=== PATIENT | female | born 1950 | race Caucasian/White ===

== ENCOUNTER 2016-09-14 07:28 | Emergency (ER) | payer MEDICARE ==
[2016-09-14 07:41] VITALS: BP 105/81
[2016-09-14] MEDS ORDERED: Albuterol 2.5 MG/3 ML NEB.SOL* (0.083%) INH ONE (08:04)
[2016-09-14] MEDS ORDERED: predniSONE TAB* 20 MG PO ONE (08:05)
--- NOTE | 2016-09-14 08:41 | RAD ---
HISTORY: Shortness of breath, wheezing, coughing COMPARISONS: December 04, 2015 VIEWS: 2: Frontal dual-energy and lateral views of the chest. FINDINGS: CARDIOMEDIASTINAL SILHOUETTE: The cardiomediastinal silhouette is normal. KATARINA: The katarina are normal. PLEURA: The costophrenic angles are sharp. No pleural abnormalities are noted. LUNG PARENCHYMA: The lungs are clear. ABDOMEN: The upper abdomen is clear. There is no subphrenic gas. BONES AND SOFT TISSUES: No bone or soft tissue abnormalities are noted. OTHER: None. IMPRESSION: NO ACTIVE CARDIOPULMONARY DISEASE.
[2016-09-14] MEDS ORDERED: Ondansetron ODT TAB* 4 MG PO ONE (09:20)
--- NOTE | 2016-09-14 10:47 | UC ---
Princess Hernández Rebecca, scribed for Tiesha Aparicio MD on 09/14/16 at 0806 . Respiratory Complaint HPI - HPI Summary HPI Summary: Pt is a 66 y/o F accompanied by her who presents to [facility] c/o nonproductive cough. Sx began suddenly 4 days ago and have been constant and worsening since onset, particularly 2 days ago. Pt was prompted to be evaluated by [facility] due to cough disturbing sleep last night and a particularly severe bout of coughing this morning. Sx aggravated and alleviated by nothing. Additionally c/o intermittent fever, chills, diffuse body aches. C/o mild rhinorrhea and sore throat. Pt denies any pain. Reports living with her 12 y/o grandson who is suffering similar sx. Confirms receiving PNA shot. PMHx bronchitis, HTN, cardiomegaly, DM, PNA (15 years ago). No PMHx PE, DVT. SHx no Hx of smoking. FHx DM. Pt is retired. Received a flu vaccination in March,. PCP is Dr. Blanco. - History of Current Complaint Chief Complaint: UCRespiratory Stated Complaint: CHEST CONGESTION COUGH Time Seen by Provider: 09/14/16 07:59 Hx Obtained From: Patient Onset/Duration: Sudden Onset, Lasting Days - 4 days, Still Present, Worse Since - 2 days ago Timing: Constant Severity Currently: None Pain Intensity: 0 Pain Scale Used: 0-10 Numeric Character: Cough: Nonproductive Aggravating Factors: Nothing Alleviating Factors: Nothing Associated Signs And Symptoms: Positive: Fever, Chills - Risk Factors Pulmonary Embolism Risk Factors: Negative Cardiac Risk Factors: Diabetes Pseudomonas Risk Factors: Negative Tuberculosis Risk Factors: Diabetes - Allergies/Home Medications Allergies/Adverse Reactions: Allergies Allergy/AdvReac Type Severity Reaction Status Date / Time No Known Allergies Allergy Verified 09/14/16 07:41 Home Medications: Home Medications glipiZIDE TAB.XL* [Glucotrol XL*] 5 mg PO DAILY 09/14/16 [History Confirmed ] PMH/Surg Hx/FS Hx/Imm Hx Endocrine History Of: Reports: Diabetes Cardiovascular History Of: Reports: Cardiac Disorders - "slightly enlarged heart ", Hypertension Denies: Deep Vein Thrombosis Respiratory History Of: Reports: Asthma, Bronchitis, Pneumonia Denies: Pulmonary Embolism Cancer History Of: Denies: Breast Cancer - Surgical History Surgical History: Yes Surgery Procedure, Year, and Place: Colon resection 2013. thoracic outlet. hysterectomy. Choley. Hernia repair. L total hip replacement. liver bx - Family History Known Family History: Positive: Diabetes - Social History Occupation: Retired Lives: With Family - and grandson Alcohol Use: None Substance Use Type: None Smoking Status (MU): Never Smoked Tobacco Review of Systems Constitutional: Fever, Chills, Other - Diffuse body aches ENT: Sore Throat, Nasal Discharge Respiratory: Cough - nonproductive All Other Systems Reviewed And Are Negative: Yes Physical Exam Triage Information Reviewed: Yes Appearance: No Pain Distress, Well-Nourished, Ill-Appearing - mildly Vital Signs: Initial Vital Signs Temp 98.4 F 09/14/16 07:36 Pulse 110 09/14/16 07:36 Resp 20 09/14/16 07:36 BP 105/81 09/14/16 07:36 Pulse Ox 95 09/14/16 07:36 tachycardia noted Vital Signs Reviewed: Yes Eyes: Positive: Conjunctiva Clear ENT: Positive: Pharynx normal, TMs normal Neck: Positive: Supple, Nontender, No Lymphadenopathy Respiratory: Positive: No respiratory distress, Decreased breath sounds Cardiovascular: Positive: No Murmur, Pulses Normal, Brisk Capillary Refill, Tachycardia Musculoskeletal: Positive: Strength Intact, ROM Intact Neurological: Positive: Alert, Muscle Tone Normal Psychological Exam: Normal Skin Exam: Normal UC Diagnostic Evaluation - Laboratory O2 Sat by Pulse Oximetry: 95 - Radiology Xray Interpretation: No Acute Changes - CXR - no active cardiopulmonary disease Radiology Interpretation Completed By: Radiologist Re-Evaluation - Re-Evaluation First Eval Re-Evaluation Time: 09:14 Change: Unchanged Comment: Increased aeration. Pt reports improved sx s/p breathing treatment. Discussed D/C plan with pt and treatment of influenza with Tamiflu. Consulted on the use of Zofran tup to QID to treat nausea secondary to influenza. Advised that she watch her blood glucose particularly closely and increase her sleep. Pt requested medication to aid with sleep. Counseled on proper narcotic use and disposal. Answered any pt questions. Respiratory Course/Dx - Course Course Of Treatment: Influenza A - positive, Influenza B negative. CXR reveals no active cardiopulmonary disease. will offer tamiflu because pt is DM and because sxs worsened two days ago, could have been onset of influenza. - Differential Dx/Diagnosis Differential Diagnosis/HQI/PQRI: Asthma, Bronchitis, Influenza, Lower Resp Infection Provider Diagnoses: influenza A. bronchitis, acute. DM II Discharge - Discharge Plan Condition: Stable Disposition: HOME Prescriptions: Ondansetron ODT TAB* [Zofran Odt TAB*] 4 mg PO Q6H PRN #12 tab.odt PRN Reason: Nausea Oseltamivir CAP* [Tamiflu CAP*] 75 mg PO BID #10 cap guaiFENesin/CODIEN 100MG-10MG* [Robitussin AC 100Mg-10Mg*] 5 ml PO Q4H PRN #50 ml MDD 20ml PRN Reason: Cough predniSONE TAB* [Deltasone TAB*] 40 mg PO DAILY #10 tab Patient Education Materials: Ondansetron (By mouth), Oseltamivir (By mouth), Influenza (ED) Referrals: Charles Blanco MD [Primary Care Provider] - Additional Instructions: RETURN TO URGENT CARE FOR ANY NEW OR WORSENING SYMPTOMS. The documentation as recorded by the Princess melgar Rebecca accurately reflects the service I personally performed and the decisions made by Markus kumari Barbara J, MD.
== END 2016-09-14 09:34 | disposition home or self-care (01) ==
LOC: UCEAST 07:28
DX: J10.1 Influenza due to other identified influenza virus with other respiratory manifestations (principal); J20.9 Acute bronchitis, unspecified; E11.9 Type 2 diabetes mellitus without complications; Z79.84 Long term (current) use of oral hypoglycemic drugs; Z96.642 Presence of left artificial hip joint
CPT/HCPCS: 71020; 87502; 99213; A9270-GY; G0463; J7512

== ENCOUNTER 2017-08-15 09:57 | Emergency (ER) | payer MEDICARE ==
[2017-08-15 10:11] VITALS: BP 143/71
--- NOTE | 2017-08-15 11:35 | RAD ---
HISTORY: Subacute trauma, right-sided pain COMPARISONS: September 14, 2016 VIEWS: 4: Frontal dual-energy and lateral views of the chest. FINDINGS: CARDIOMEDIASTINAL SILHOUETTE: The cardiomediastinal silhouette is normal. KATARINA: The katarina are normal. PLEURA: The costophrenic angles are sharp. No pleural abnormalities are noted. LUNG PARENCHYMA: The lungs are clear. ABDOMEN: The upper abdomen is clear. There is no subphrenic gas. BONES AND SOFT TISSUES: No bone or soft tissue abnormalities are noted. OTHER: None. IMPRESSION: NO ACTIVE CARDIOPULMONARY DISEASE.
--- NOTE | 2017-08-15 11:37 | RAD ---
HISTORY: Subacute trauma, right-sided pain COMPARISONS: July 28, 2015 VIEWS: 4, Frontal view of the chest with frontal and oblique views of the right hemithorax. FINDINGS: There is no displaced rib fracture or pneumothorax. The visualized lungs are clear. IMPRESSION: NO DISPLACED RIB FRACTURE OR PNEUMOTHORAX
--- NOTE | 2017-08-15 11:38 | RAD ---
HISTORY: Subacute trauma, right-sided pain COMPARISONS: August 12, 2009 VIEWS: 3, Frontal, swimmer's, and lateral views of the thoracic spine. FINDINGS: ALIGNMENT: There is a trace scoliotic curvature, stable VERTEBRAL BODIES: The vertebral body heights are normal. The interpedicular distances are normal. JOINTS: Unremarkable. INTERVERTEBRAL DISCS: The intervertebral disc heights are normal. SOFT TISSUE: Unremarkable OTHER: The visualized lungs are clear. IMPRESSION: UNREMARKABLE RADIOGRAPHS OF THE THORACIC SPINE
--- NOTE | 2017-08-21 23:55 | UC ---
Eric Hernández Angela, scribed for Monique Rivera MD on 08/15/17 at 1052 . Back Pain HPI - HPI Summary HPI Summary: This pt is a 67 y/o female presenting to [facility] c/o right sided back pain s/p fall 3 days ago. Pt describes her pain originates on the right side of the lower rib cage. She reports she slipped on ice 3 days ago, fell down and subsequently landed on her right side of her back. Pt notes her back was sore afterwards. Last night, as she was going to bed laying on her left side, she rolled over her bed, twisted her back and heard a pop. Immediately after, she was in excruciating pain. Her pain is aggravated with deep breaths and movement. She has taken ibuprofen with some relief. Denies abd pain, hematuria, urinary or bowel incontinence. PMHx: type 2 diabetes, HTN. NKDA. - History of Current Complaint Chief Complaint: UCBackPain Stated Complaint: BACK INJURY FROM FALL Time Seen by Provider: 08/15/17 10:40 Hx Obtained From: Patient Onset/Duration: Lasting Days, Still Present Timing: Lasting Days Severity Currently: Moderate Pain Intensity: 5 Pain Scale Used: 0-10 Numeric Back Pain: Is Discrete @ - right sided back Aggravating Factor(s): Movement, Other - deep breaths Alleviating Factor(s): Nothing Associated Signs And Symptoms: Negative: Abdominal Pain, Bladder Incontinence, Bowel Incontinence - Allergies/Home Medications Allergies/Adverse Reactions: Allergies Allergy/AdvReac Type Severity Reaction Status Date / Time No Known Allergies Allergy Verified 08/15/17 10:07 PMH/Surg Hx/FS Hx/Imm Hx Endocrine History: Diabetes Cardiovascular History: Hypertension Respiratory History: Asthma - Surgical History Surgical History: Yes Surgery Procedure, Year, and Place: Colon resection 2013. thoracic outlet. hysterectomy. Choley. Hernia repair. L total hip replacement. liver bx - Family History Known Family History: Positive: Diabetes - Social History Alcohol Use: None Substance Use Type: None Smoking Status (MU): Never Smoked Tobacco Review of Systems Constitutional: Negative Skin: Negative Eyes: Negative ENT: Negative Respiratory: Negative Cardiovascular: Negative Gastrointestinal: Negative Genitourinary: Negative Motor: Negative Neurovascular: Negative Musculoskeletal: Other: - right sided back pain Neurological: Negative Psychological: Negative All Other Systems Reviewed And Are Negative: Yes Physical Exam Triage Information Reviewed: Yes Appearance: Well-Nourished Vital Signs: Initial Vital Signs Temp 98 F 08/15/17 10:08 Pulse 73 08/15/17 10:08 Resp 16 08/15/17 10:08 BP 143/71 08/15/17 10:08 Pulse Ox 100 08/15/17 10:08 Vital Signs Reviewed: Yes Eye Exam: Normal ENT Exam: Normal Neck exam: Normal Neck: Positive: Supple, Nontender Respiratory Exam: Other - tender left lat chest wall, no billie skin discoloration, no crepitus. Respiratory: Positive: Chest non-tender, Lungs clear, Normal breath sounds, No respiratory distress, No accessory muscle use Cardiovascular Exam: Normal Cardiovascular: Positive: Other: - heart rate regular, good general skin color, good capillary refill Abdominal Exam: Normal Abdomen Description: Positive: Nontender, No Organomegaly, Soft Bowel Sounds: Positive: Present Musculoskeletal: Positive: Other: - Tenderness to the right of the upper thoracic spine and the low back Neurological Exam: Normal - nonfocal, grossly intact Psychological Exam: Normal - conversing easily and appropriately Skin Exam: Normal - no visible or reported rash Diagnostics - Radiology Chest XR Xray Interpretation: No Acute Changes - IMPRESSION: No active cardiopulmonary disease. Dr. Rivera has reviewed this radiology report. Radiology Interpretation Completed By: Radiologist Ribs XR Xray Interpretation: No Acute Changes - IMPRESSION: No displaced rib fracture or pneumothorax. Dr. Rivera has reviewed this radiology report. Radiology Interpretation Completed By: Radiologist Thoracic spine XR Xray Interpretation: No Acute Changes - IMPRESSION: Unremarkable radiographis of the thoracic spine. Dr. Rivera has reviewed this radiology report. Radiology Interpretation Completed By: Radiologist Re-Evaluation - Re-Evaluation First Eval Re-Evaluation Time: 11:42 Comment: I reviewed the XR results with the pt. Back Pain Course/Dx - Course Course Of Treatment: Declines analgesics. Chest XR is NAD. Ribs XR is NAD. Thoracic spine XR is NAD. D/w Mr. Wahl COA and Tx plan. Questions as posed answered to the best of my ability. - Differential Dx/Diagnosis Provider Diagnoses: Chest wall pain, rib contusion (consider chest wall strain vs occult fx) Discharge - Discharge Plan Condition: Stable Disposition: HOME Prescriptions: Ibuprofen TAB* [Motrin TAB* 600 MG] 600 mg PO Q6H PRN #30 tab PRN Reason: Pain Patient Education Materials: Chest Wall Pain (ED), Rib Contusion (ED) Referrals: Charles Blanco MD [Primary Care Provider] - Additional Instructions: Your blood pressure was elevated during today's visit, 143/71. Please follow up with your primary care provider in 1-2 weeks. Seek medical attention for worse or new problems in the meantime. The documentation as recorded by the Eric melgar Angela accurately reflects the service I personally performed and the decisions made by me, Monique Rivera MD.
== END 2017-08-15 11:58 | disposition home or self-care (01) ==
LOC: UCEAST 09:57
DX: R07.89 Other chest pain (principal); S20.20XA Contusion of thorax, unspecified, initial encounter; W00.0XXA Fall on same level due to ice and snow, initial encounter; Y93.9 Activity, unspecified; Y92.9 Unspecified place or not applicable; E11.9 Type 2 diabetes mellitus without complications; I10 Essential (primary) hypertension; J45.909 Unspecified asthma, uncomplicated; Z90.710 Acquired absence of both cervix and uterus; Z90.49 Acquired absence of other specified parts of digestive tract; Z96.642 Presence of left artificial hip joint
CPT/HCPCS: 71046; 72070; 99212; G0463

== ENCOUNTER 2018-01-31 10:25 | Emergency (ER) | payer MEDICARE ==
[2018-01-31 10:35] VITALS: BP 123/68
--- NOTE | 2018-01-31 10:37 | UC ---
Ear Complaint HPI - HPI Summary HPI Summary: 67 yo female presents with left ear pain for the last 2 days. She tells me that she was swimming 3 days ago and the next morning woke up with left ear pain and drainage. Since then drainage has slowed, but she feels the pain has increased. Also has some trouble hearing out of that ear. She flushed it at home and said she got a lot of "gunk" out. Denies fever, chills, headache, dizziness. - History of Current Complaint Chief Complaint: UCEar Stated Complaint: EAR PAIN Time Seen by Provider: 01/31/18 10:37 Hx Obtained From: Patient Onset/Duration: Gradual Onset Severity Initially: Mild Severity Currently: Moderate Pain Intensity: 6 Pain Scale Used: 0-10 Numeric - Allergies/Home Medications Allergies/Adverse Reactions: Allergies Allergy/AdvReac Type Severity Reaction Status Date / Time amoxicillin Allergy Diarrhea Verified 01/31/18 10:35 PMH/Surg Hx/FS Hx/Imm Hx Previously Healthy: Yes Endocrine History: Diabetes Cardiovascular History: Hypertension - Surgical History Surgical History: Yes Surgery Procedure, Year, and Place: Colon resection 2013. thoracic outlet. hysterectomy. Choley. Hernia repair. L total hip replacement. liver bx - Family History Known Family History: Positive: Diabetes - Social History Lives: With Family Alcohol Use: None Substance Use Type: None Smoking Status (MU): Never Smoked Tobacco Review of Systems Constitutional: Negative Skin: Negative Eyes: Negative ENT: Ear Ache Respiratory: Negative Cardiovascular: Negative Gastrointestinal: Negative Neurovascular: Negative Musculoskeletal: Negative Neurological: Negative Psychological: Negative All Other Systems Reviewed And Are Negative: Yes Physical Exam - Summary Physical Exam Summary: GENERAL: NAD. WDWN. No pain distress. SKIN: No rashes, sores, lesions, or open wounds. HEENT: Head: AT/NC Eyes: EOM intact. Conjunctiva clear without inflammation or discharge. Ears: Hearing grossly normal. LEFT ear canal with moderate edema and mild clear drainage. TM intact without erythema or bulging. Nose: Nasal mucosa pink and moist. NTTP maxillary and frontal sinus. Throat: Posterior oropharynx without exudates, erythema, or tonsillar enlargement. Uvula midline. NECK: Supple. Nontender. No lymphadenopathy. CHEST: CTAB. No r/r/w. No accessory muscle use. Breathing comfortably and in no distress. CV: RRR. Without m/r/g. Pulses intact. Brisk cap refill. NEURO: Alert. CN II-XII grossly intact. PSYCH: Age appropriate behavior. Triage Information Reviewed: Yes Vital Signs: Initial Vital Signs Temp 97.1 F 01/31/18 10:31 Pulse 85 01/31/18 10:31 Resp 18 01/31/18 10:31 BP 123/68 01/31/18 10:31 Pulse Ox 97 01/31/18 10:31 Ear Complaint Course/Dx - Course Course Of Treatment: Left otitis externa - Differential Dx/Diagnosis Provider Diagnoses: Left otitis externa Discharge - Sign-Out/Discharge Documenting (check all that apply): Discharge/Admit/Transfer - Discharge Plan Condition: Stable Disposition: HOME Prescriptions: Neomyc/Polym/HC 1% OTIC SUSP* [Cortisporin Otic Susp 1%*] 4 drop LEFT EAR QID # 1 btl Patient Education Materials: Otitis Externa (ED) Referrals: Charles Blanco MD [Primary Care Provider] - Additional Instructions: If you develop a fever, shortness of breath, chest pain, new or worsening symptoms - please call your PCP or go to the ED. - Billing Disposition and Condition Condition: STABLE Disposition: Home
== END 2018-01-31 10:57 | disposition home or self-care (01) ==
LOC: UCEAST 10:25
DX: H60.92 Unspecified otitis externa, left ear (principal); E11.9 Type 2 diabetes mellitus without complications; I10 Essential (primary) hypertension; Z88.0 Allergy status to penicillin; Z96.642 Presence of left artificial hip joint
CPT/HCPCS: 99212; G0463

== ENCOUNTER 2018-07-10 11:02 | Emergency (ER) | payer MEDICARE ==
[2018-07-10] MEDS ORDERED: NS 0.9% 1000 ML* 1,000 ML IV ONE (11:19)
--- NOTE | 2018-07-10 11:48 | ED ---
Abdominal Pain/Female - HPI Summary HPI Summary: Patient is a 67 y/o F presenting to ED with complaints of LLQ and periumbilical pain with some radiation to left flank/back alongside N/V/D for the past twelve days. She notes that pain has recently been located more so at periumbilical area as opposed to LLQ. No black stool reported. PMHx of diverticulitis, cdiff, diabetes. PSHx of hystectomy as well as bowel resection 3-4 years [address] done [address] Dr[address] García in [place]. Patient states that she went to her PCP and was placed on doxycycline. However, she states this caused a lot of N/V, went back to PCP who placed her on cipro and flagyl, which she has been on for three days. She notes that she did not take it this morning due to continued N/V. On triage, pain is rated 7/10, nothing is noted to aggravate/alleviate Sx. Home medications and allergies are reviewed. - History of Current Complaint Chief Complaint: EDAbdPain Stated Complaint: SEVERE ABD PAIN Time Seen by Provider: 07/10/18 11:38 Hx Obtained From: Patient Onset/Duration: Lasting Days - 12, Still Present Timing: Days - 12 Severity Currently: Severe - 7/10 Pain Intensity: 7 Pain Scale Used: 0-10 Numeric - 7/10 Location: Discrete At: LLQ, Umbilical Radiates: Yes Radiates to: Back - left, Flank - left Aggravating Factor(s): Nothing Alleviating Factor(s): Nothing Associated Signs and Symptoms: Positive: Back Pain - left, Nausea, Vomiting, Diarrhea, Other: - no black stool, endorses left flank pain Allergies/Adverse Reactions: Allergies Allergy/AdvReac Type Severity Reaction Status Date / Time amoxicillin Allergy Diarrhea Verified 07/10/18 11:46 Home Medications: Home Medications Aspirin TAB* [Aspirin 325 MG TAB*] 650 mg PO BID 07/10/18 [History Confirmed ] Pravastatin Sodium 40 mg PO DAILY 07/10/18 [History Confirmed 07/10/18] Sertraline HCl [Zoloft] 50 mg PO DAILY 07/10/18 [History Confirmed 07/10/18] PMH/Surg Hx/FS Hx/Imm Hx Endocrine/Hematology History: Reports: Hx Diabetes - niddm Cardiovascular History: Reports: Hx Hypertension Denies: Hx Deep Vein Thrombosis Respiratory History: Reports: Hx Pneumonia Denies: Hx Asthma, Hx Pulmonary Embolism - Cancer History Hx Chemotherapy: No Hx Radiation Therapy: No - Surgical History Surgery Procedure, Year, and Place: Colon resection 2013. thoracic outlet. hysterectomy. Choley. Hernia repair. L total hip replacement. liver bx Infectious Disease History: No Infectious Disease History: Reports: Hx Clostridium Difficile - May 2015, Hx Shingles Denies: Hx Hepatitis, Hx Human Immunodeficiency Virus (HIV), Hx of Known/ Suspected MRSA, Hx Tuberculosis, Hx Known/Suspected VRE, Hx Known/Suspected VRSA , History Other Infectious Disease, Traveled Outside the [place] in Last 30 Days - Family History Known Family History: Positive: Diabetes - Social History Alcohol Use: None Substance Use Type: Reports: None Hx Tobacco Use: No Smoking Status (MU): Never Smoked Tobacco Review of Systems Positive: Abdominal Pain, Vomiting, Diarrhea, Nausea Positive: flank pain - left , other - NEGATIVE - BLACK STOOL Positive: Other - POSITIVE - BACK PAIN All Other Systems Reviewed And Are Negative: Yes Physical Exam - Summary Physical Exam Summary: Appearance: The patient is well-nourished in no acute distress and in no acute pain. Skin: The skin is warm and dry and skin color reflects adequate perfusion. HEENT: The head is normocephalic and atraumatic. The pupils are equal and reactive. The conjunctivae are clear and without drainage. Nares are patent and without drainage. Mouth reveals moist mucous membranes and the throat is without erythema and exudate. The external ears are intact. The ear canals are patent and without drainage. The tympanic membranes are intact. Neck: The neck is supple with full range of motion and non-tender. There are no carotid bruits. There is no neck vein distension. Respiratory: Chest is non-tender. Lungs are clear to auscultation and breath sounds are symmetrical and equal. Cardiovascular: Heart is regular rate and rhythm. There is no murmur or rub auscultated. There is no peripheral edema and pulses are symmetrical and equal. Abdomen: The abdomen is soft. LUQ and epigastric tenderness noted. There are normal bowel sounds heard in all four quadrants and there is no organomegaly palpated. Musculoskeletal: There is no back tenderness noted. Extremities are non-tender with full range of motion. There is good capillary refill. There is no peripheral edema or calf tenderness elicited. Neurological: Patient is alert and oriented to person, place and time. The patient has symmetrical motor strength in all four extremities. Cranial nerves are grossly intact. Deep tendon reflexes are symmetrical and equal in all four extremities. Psychiatric: The patient has an appropriate affect and does not exhibit any anxiety or depression. Triage Information Reviewed: Yes Vital Signs On Initial Exam: Initial Vitals Temp Pulse Resp BP Pulse Ox 97.4 F 80 18 115/82 97 07/10/18 11:05 07/10/18 11:05 07/10/18 11:05 07/10/18 11:05 07/10/18 11:05 Vital Signs Reviewed: Yes Diagnostics - Vital Signs Vital Signs Temp Pulse Resp BP Pulse Ox 07/10/18 11:05 97.4 F 80 18 115/82 97 - Laboratory Result Diagrams: 07/10/18 12:09 07/10/18 13:45 Lab Statement: Any lab studies that have been ordered have been reviewed, and results considered in the medical decision making process. - CT ABD/PEL CT CT Interpretation Completed By: Radiologist Summary of CT Findings: IMPRESSION: 1. FATTY INFILTRATION OF THE LIVER. 2. STABLE OBSTRUCTING LEFT RENAL CALYCEAL STONE. THIS REPORT WAS REVIEWED BY ED PHYSICIAN. - EKG 1137 Cardiac Rate: NL - RATE OF 83 BPM EKG Rhythm: Sinus Rhythm ST Segment: Normal Ectopy: None Summary of EKG Findings: EKG showed normal sinus rhythm with rate of 83 BPM and left anterior fascicular block. Normal ST, no ectopy, no STEMI Re-Evaluation - Re-Evaluation First Eval Re-Evaluation Time: 15:04 Comment: Results of labs and tests were discussed with patient. Patient will be discharged to home and follow up with PCP. She is agreeable with this. Abdominal Pain Fem Course/Dx - Course Course Of Treatment: Ms. Wahl presented with several days of epigastric pain. Initially the pain was more difficult to characterize and as she had a history of diverticulitis she was started on Cipro and Flagyl as an outpatient. She has had some nausea and vomiting. She denies black stools but states they've been darker than normal. She had epigastric tenderness and no the left lower quadrant tenderness. Labs revealed an elevated BUN with an unremarkable H&H. She was given Protonix IV and got significant relief from her epigastric pain. I'm concerned the source of her elevated BUN may be some oozing from a gastritis and I'm going to start her on Prilosec and sucralfate and get close follow-up after the weekend. - Diagnoses Provider Diagnoses: Gastritis Discharge - Sign-Out/Discharge Documenting (check all that apply): Patient Departure - discharge - Discharge Plan Condition: Stable Disposition: HOME Prescriptions: Omeprazole CAP* [Prilosec CAP* 20 MG] 20 mg PO BID #20 cap. Sucralfate TAB* [Carafate*] 1 gm PO QID #40 tab Patient Education Materials: Gastritis (ED) Referrals: Charles Blanco MD [Primary Care Provider] - 3 Days Additional Instructions: RETURN TO ED FOR ANY NEW OR WORSENING SYMPTOMS. FOLLOW UP WITH PRIMARY CARE PHYSICIAN IN 2-3 DAYS. STOP TAKING CIPRO. - Billing Disposition and Condition Condition: STABLE Disposition: Home - Attestation Statements Document Initiated by Christyibe: Yes Documenting Scribe: AMY JOHNSON Provider For Whom Jasmin is Documenting (Include Credential): ALLISON VALENCIA MD Scribe Attestation: AMY Hernández , scribed for ALLISON VALENCIA MD on 07/10/18 at 2021. Scribe Documentation Reviewed: Yes Provider Attestation: The documentation as recorded by the AMY melgar accurately reflects the service I personally performed and the decisions made by me, ALLISON VALENCIA MD Status of Scribe Document: Viewed
[2018-07-10 12:21] LABS: Hematocrit 40 % (35-47); Mean Corpuscular HGB Conc 33 g/dl (31-36); Mean Corpuscular Hemoglobin 30 pg (27-31); Mean Corpuscular Volume 91 fL (80-97); Mean Platelet Volume 9.1 fL (7.4-10.4); Platelet Count 270 10^3/ul (150-450); Red Cell Distribution Width 14 % (10.5-15); White Blood Count 14.1 10^3/ul (3.5-10.8)
[2018-07-10 12:31] LABS: INR 0.99 (0.77-1.02)
[2018-07-10 12:47] LABS: EGFR Non-African American 64.1 (>60)
[2018-07-10 13:21] LABS: ABS Basophils 0.1 10^3/ul (0-0.2); ABS Eosinophils 0.6 10^3/ul (0-0.6); ABS Lymphocytes 6.7 10^3/ul (1.0-4.8); ABS Monocytes 0.5 10^3/ul (0-0.8); ABS Neutrophils 6.1 10^3/ul (1.5-7.7); ABS Nucleated RBC 0 10^3/ul; Eosinophil % 4.3 %; Lymphocyte % 47.8 %; Nucleated Red Blood Cells % 0.2
[2018-07-10] MEDS ORDERED: Pantoprazole IV* 40 MG IV ONE (13:40)
[2018-07-10 14:52] LABS: Urine Appearance Clear; Urine Blood Negative (Negative); Urine Color Yellow; Urine Ketones Negative (Negative); Urine Protein Negative (Negative); Urine Red Blood Cell 1+(3-5/hpf) (Absent); Urine Specific Gravity 1.021 (1.010-1.030); Urine Urobilinogen Negative (Negative); Urine White Blood Cell Trace(0-5/hpf) (Absent)
[2018-07-10 16:33] VITALS: BP 130/70
== END 2018-07-10 16:15 | disposition home or self-care (01) ==
LOC: ED 11:02
DX: K29.70 Gastritis, unspecified, without bleeding (principal); K76.0 Fatty (change of) liver, not elsewhere classified; N20.0 Calculus of kidney; Z96.642 Presence of left artificial hip joint; Z90.49 Acquired absence of other specified parts of digestive tract; Z90.710 Acquired absence of both cervix and uterus; Z88.0 Allergy status to penicillin
CPT/HCPCS: 36415; 74176; 80053; 81003; 81015; 83605; 83690; 84484; 85025; 85610; 86140; 87086; 93005; 96374; 99283

== ENCOUNTER 2019-08-16 08:50 | Emergency (ER) | payer MEDICARE ==
[2019-08-16] MEDS ORDERED: NS 0.9% 1000 ML** 1,000 ML IV ONE ×2 (09:24→10:13)
[2019-08-16] MEDS ORDERED: Ondansetron INJ* 2 MG/ML VIAL IV ONE (09:24)
[2019-08-16] MEDS ORDERED: Morphine 4 MG/ML VIAL (1 ml) 4 MG/ML VIAL IV ONE ×2 (09:24→10:26)
--- NOTE | 2019-08-16 09:25 | ED ---
Abdominal Pain/Female - HPI Summary HPI Summary: Patient is a 69-year-old female who presents emergency department for severe rectal pain times several days. Patient states she had a colonoscopy 10 days ago for chronic diarrhea and was found to have internal and external hemorrhoids. She was referred to surgery and had an appointment with Dr. Collier, general surgery, today. Patient states the pain increased in the last few days and she presents to the ER for evaluation. Patient states pain radiates from rectum to outer buttocks. She notes chills without documented fever as well as nausea. Past medical history of obesity, diabetes, hypertension, GERD. Symptoms are moderate in severity. No current modifying factors. Patient notes she's been using rectal suppositories as well as applying topical steroids with no improvement. - History of Current Complaint Chief Complaint: EDRectalPain Stated Complaint: HEMORRHOIDS PER PT Time Seen by Provider: 08/16/19 09:07 Hx Obtained From: Patient Pain Intensity: 10 Allergies/Adverse Reactions: Allergies Allergy/AdvReac Type Severity Reaction Status Date / Time amoxicillin Allergy Diarrhea Verified 08/16/19 09:01 Home Medications: Home Medications Cyanocobalamin TAB* [Vitamin B12 TAB*] 2,500 mcg PO DAILY 08/16/19 [History Confirmed 08/16/19] Hydrocortisone Acetate [Anucort-Hc] 25 mg NE Q12H 08/16/19 [History Confirmed ] Multivitamins/Minerals TAB* [Theragran/minerals TAB*] 1 tab PO DAILY 08/16/19 [ History Confirmed 08/16/19] PMH/Surg Hx/FS Hx/Imm Hx Previously Healthy: Yes Endocrine/Hematology History: Reports: Hx Diabetes - niddm Cardiovascular History: Reports: Hx Hypertension Denies: Hx Deep Vein Thrombosis Respiratory History: Reports: Hx Pneumonia Denies: Hx Asthma, Hx Pulmonary Embolism Musculoskeletal History: Denies: Hx Rheumatoid Arthritis, Hx Osteoporosis - Cancer History Hx Chemotherapy: No Hx Radiation Therapy: No - Surgical History Surgery Procedure, Year, and Place: Colon resection 2013. thoracic outlet. hysterectomy. Choley. Hernia repair. L total hip replacement. liver bx Infectious Disease History: No Infectious Disease History: Reports: Hx Clostridium Difficile - May 2015, Hx Shingles Denies: Hx Hepatitis, Hx Human Immunodeficiency Virus (HIV), Hx of Known/ Suspected MRSA, Hx Tuberculosis, Hx Known/Suspected VRE, Hx Known/Suspected VRSA , History Other Infectious Disease, Traveled Outside the [place] in Last 30 Days - Family History Known Family History: Positive: Diabetes, Non-Contributory - Social History Occupation: Retired Lives: With Family Alcohol Use: None Substance Use Type: Reports: None Hx Tobacco Use: No Smoking Status (MU): Never Smoked Tobacco Review of Systems Positive: Chills. Negative: Fever Cardiovascular: Negative Respiratory: Negative Positive: Nausea, Other - rectal pain. Negative: Abdominal Pain, Vomiting Genitourinary: Negative Skin: Negative Negative: Rash All Other Systems Reviewed And Are Negative: Yes Physical Exam Triage Information Reviewed: Yes Vital Signs On Initial Exam: Initial Vitals Temp Pulse Resp BP Pulse Ox 97.7 F 125 20 128/93 97 08/16/19 08:58 08/16/19 08:58 08/16/19 08:58 08/16/19 08:58 08/16/19 08:58 Vital Signs Reviewed: Yes Appearance: Positive: Pain Distress - Patient lying in bed on her left side appears uncomfortable and nontoxic. present. Skin: Positive: Warm, Dry Head/Face: Positive: Normal Head/Face Inspection Eyes: Positive: Normal, EOMI Neck: Positive: Supple Abdomen Description: Positive: Nontender, Soft, Other: - Rectal exam performed with patient's nurse, Priscilla VALDEZ. Small non-thrombosed external hemorrhoid noted. Patient will not allow digital rectal exam secondary to pain. Diffuse palpable pain around rectum without obvious signs of abscess or fissure. Neurological: Positive: Normal, CN Intact II-III Psychiatric: Positive: Affect/Mood Appropriate Procedures - Sedation Patient Received Moderate/Deep Sedation with Procedure: No Diagnostics - Vital Signs Vital Signs Temp Pulse Resp BP Pulse Ox 08/16/19 08:58 97.7 F 125 20 128/93 97 - Laboratory Result Diagrams: 08/16/19 09:25 08/16/19 09:25 Lab Statement: Any lab studies that have been ordered have been reviewed, and results considered in the medical decision making process. Abdominal Pain Fem Course/Dx - Course Course Of Treatment: Pt. with sever rectal pain. Tachycardic, afebrile. Nontoxic appearing. Limited exam secondary to pt.'s pain. No obvious signs for pt.'s pain on exam. Hx of DM. Will obtain labs and ct scan to evaluate for possible rectal abscess, complication from recent colonscopy. Pt. given IV morphine for pain x 2. WBC 13.1, anion gap 12, glucose 395, lactic acid 2.7. Pt. given 2 liters of IV fluids. CT abd/pelvis per radiology: IMPRESSION: 1. THERE HAS BEEN INTERVAL DEVELOPMENT OF MUCOSAL THICKENING AND ENHANCEMENT OF THE SMALL. BOWEL WITH A SMALL AMOUNT OF INTRALUMINAL FLUID. THERE IS NO DILATATION. THE DIFFERENTIAL. INCLUDES ENTERITIS, THOUGH EARLY OBSTRUCTION IS WITHIN THE DIFFERENTIAL. RECOMMEND. ATTENTION ON FOLLOW-UP IMAGING. 2. FATTY INFILTRATION OF THE LIVER. Case discussed with Dr. Collier who examined pt. in the ED. She does not see an etiology for pt.'s pain at this time. She recommends f.u with colorectal surgeon, which we do not have at [facility] [place]. Pt. prefers f.u with herrick for this. Will rx a few days of pain medication. MICROBIOLOGY LAB TECHNICIAN reviewed. Pt. feeling better at time of dc. Pt. will return to er if sxs change or worsen. Pt. understands and agrees with plan. - Diagnoses Differential Diagnosis: Positive: Constipation, Other - hemorrhoids, anal fissure, rectal abscess, bowel perforation. Provider Diagnoses: Rectal pain Discharge ED - Sign-Out/Discharge Documenting (check all that apply): Patient Departure - Discharge Plan Condition: Improved Disposition: HOME Prescriptions: oxyCODONE/Acetamin 5/325 MG* [Percocet 5/325 TAB*] 1 tab PO Q6H PRN #12 tab MDD 4 PRN Reason: Pain - Moderate Patient Education Materials: Rectal Pain (ED) Referrals: Charles Blanco MD [Primary Care Provider] - Yue Collier MD [Medical Doctor] - Additional Instructions: Dr. Collier, surgery, recommends schedule an appointment with a colorectal surgeon at [facility] Pain medication as directed Recommend taking stool softener (such as Colace) with pain medication to prevent constipation Can continue rectal/topical steroids Continue warm baths Return to ER for increased pain, fever, vomiting, or if concerned - Billing Disposition and Condition Condition: IMPROVED Disposition: Home
[2019-08-16 09:45] LABS: ABS Eosinophils 0.2 10^3/ul (0-0.6); ABS Lymphocytes 4.1 10^3/ul (1.0-4.8); ABS Monocytes 0.7 10^3/ul (0-0.8); Eosinophil % 1.7 %; Hematocrit 38 % (35-47); Hemoglobin 12.4 g/dL (12.0-16.0); Lymphocyte % 31.5 %; Mean Corpuscular HGB Conc 33 g/dL (31-36); Mean Corpuscular Hemoglobin 30 pg (27-31); Mean Corpuscular Volume 91 fL (80-97); Mean Platelet Volume 8.6 fL (7.4-10.4); Nucleated Red Blood Cells % 0.1; Platelet Count 317 10^3/uL (150-450); Red Blood Count 4.13 10^6 /uL (3.70-4.87); Red Cell Distribution Width 13 % (10-15); White Blood Count 13.1 10^3/uL (3.5-10.8)
[2019-08-16 10:06] LABS: Albumin/Globulin Ratio 1.1 (1-3); BUN/Creatinine Ratio 29.6 (8-20); C Reactive Protein 13.52 mg/L (<8.01); Calcium 9.2 mg/dL (8.6-10.3); EGFR African American 68.1 (>60); EGFR Non-African American 56.3 (>60); Globulin 3.5 g/dL (2-4); Total Bilirubin 0.3 mg/dL (0.2-1.0); Total Protein 7.5 g/dL (6.4-8.9)
--- OUTSIDE RECORDS SUMMARY | 2019-08-16 10:26 | XMS REPORT | Continuity of Care Document ---
:1950 External Reference #:[id number] Author Name Daxa Bob M.D. Address [address] [place] [address] Care Team Providers Name Role Phone Joshua Gonzalez MD - Gastroenterology Care Team Information Group Rooms Coordinator Charles Blanco MD - Family Care Team Information Group Rooms Coordinator Medicine Joaquin Dunbar DO - Gastroenterology Care Team Information Group Rooms Coordinator Problems Active Problems Provider Date Type II diabetes mellitus uncontrolled Daxa Bob M.D. Onset: 2010 Hyperlipidemia Daxa Bob M.D. Onset: 04/16/2011 Essential hypertension Daxa Bob M.D. Onset: 04/16/2011 Myalgia & Myositis Unspecified Daxa Bob M.D. Onset: 04/16/2011 Gastroesophageal reflux disease Daxa Bob M.D. Onset: 04/16/2011 Vitamin D deficiency Daxa Bob M.D. Onset: 08/09/2011 Pure hyperglyceridemia Daxa Bob M.D. Onset: 09/13/2011 Herpes zoster without complication Charles Blanco M.D. Onset: 12/13/2011 Vaginitis and vulvovaginitis Charles Blanco M.D. Onset: 02/10/2013 Diverticulitis of colon Charles Blanco M.D. Onset: 04/09/2013 Diarrhea Charles Blanco M.D. Onset: 04/17/2015 Type II diabetes mellitus uncontrolled Charles Blanco M.D. Onset: 2014 Chest pain Charles Blanco M.D. Onset: 03/24/2017 Anxiety state Charles Blanco M.D. Onset: 11/24/2017 Overweight Charles Blanco M.D. Onset: 11/24/2017 Social History Type Date Description Comments Sex Unknown Tobacco Use Start: Unknown Nonsmoker ETOH Use Negative For Denies alcohol use Tobacco Use Start: Unknown Patient has never smoked Smoking Status Reviewed: 11/11/17 Patient has never smoked Allergies, Adverse Reactions, Alerts Active Allergies Reaction Severity Comments Date Amoxicillin hx of cdiff 11/11/2017 Inactive Allergies NKDA 04/16/2011 Medications Active Medications SIG Qnty Indications Ordering Date Provider Nitro-bid small amount to 30gm K64.8 Daxa Millard 2% Ointment affected Alejandra Bob 0 hemorrhoid twice daily Sertraline HCL Take 1 Tablet By 30tabs Albertina Siddiqui, 50mg Tablets Mouth Once Daily LEAD RELAY TESTER 0 Anucort-HC [address] of 36units K64.8 Daxa Millard 25mg Suppository rectum every 12h Alejandra Bob 9 Glipizide ER Take 1 Tablet By 60tabs E11.65 Charles Delaney 5mg Tablets ER Mouth Twice Alejandra Blanco 9 24HR Daily Metformin HCL Take 2 Tablets 120tabs E11.65 Albertina Siddiqui 500mg Tablets By Mouth Twice LEAD RELAY TESTER 5 Daily Vitamin B12 2 1/2 po qd 30tabs Charles Delaney 1000mcg Tablets ER Alejandra Blanco 4 Lisinopril Take 1 Tablet By 90tabs E11.65 Charles Delaney 10mg Tablets Mouth Once Daily Alejandra Blanco 2 Pravastatin Sodium Take 1 & 1/2 120tabs E78.4 Charles Delaney 40mg Tablets (One & One-Half) Alejandra Blanco 2 Tablets By Mouth Once Daily Fish Oil 1 po qd Daxa Millard 500mg Capsules Alejandra Bob 2 Vitamin D 1 po qd Daxa Millard 1000Unit Capsules Alejandra Bob 2 Contour Blood Test Strips use to measure 100units E11.65 Daxa L. blood sugar up Alejandra Bob 1 to qid Prilosec OTC 1 po qd 30tabs Charles Delaney 20mg Tablets DR Francis M.D. 0 Hydrochlorothiazide Take 1 Tablet By 90tabs Charles Delaney 25mg Mouth Once Daily Alejandra Blanco 0 Tablets Multivitamins 1 po qd Unknown Capsules 0 Lysine 3 po qd Unknown 1000mg Tablets 0 Co Q 10 1 po qd Unknown 100mg Capsules 0 History Medications Ciprofloxacin HCL 1 tab by mouth 14tabs N39.0 Charles Delaney 07/22/2019 - 250mg twice a day x Alejandra Blanco 08/13/2019 Tablets 7 days Immunizations CPT Code Status Date Vaccine Reaction Lot # [id number] Given 05/29/2016 Pneumococcal Conjugate Vacc-13 [id number] Given 12/12/2010 Pneumococcal Immunization no reaction noted [id number] Given 01/15/2005 MMR Virus Immunization Vital Signs Date Vital Result Comment 08/13/2019 2:29pm BP Systolic 102 mmHg BP Diastolic 62 mmHg Heart Rate 80 /min Body Temperature 97.0 F Respiratory Rate 20 /min Weight 179.25 lb shoes on 07/22/2019 2:57pm BP Systolic 120 mmHg BP Diastolic 70 mmHg Heart Rate 90 /min Body Temperature 97.6 F Respiratory Rate 20 /min Weight 182.00 lb Results Test Acquired Date Facility Test Result H/L Range Note Laboratory test 08/05/2019 [facility] [place]ULT 1 finding Pathology Order BELOW Urine Culture And 07/23/2019 [facility] [place] SEE RESULT 2 Sensitivities BELOW Ua - Micro (Fma) 07/22/2019 family medicine Appearance clear (607)- - Color yellow Glucose, Urine (Fma/CMC/CTX) neg Bilirubin neg Ketones trace SP Grav 1.025 Blood neg PH 5.0 Protein ssa trace Urobil 0.2 Nitrite neg Leukocytes (Fma/CMC/Centrex) neg Hyaline - /Lpf Granular - /Lpf WBC (Fma,[facility]rex) 0-1 RBC - Mucus (Fma/CBC/[facility]rex) - /Lpf Epith few /Lpf Bacteria trace /Hpf Amorphous (Fma/CMC/Centrex) - /Lpf Crystals, Fluid (Fma/CMC/CTX) - Z#Comments - Laboratory test 05/27/2019 [facility] C Difficile PCR SEE RESULT 3 finding BELOW Comprehensive 03/26/2019 [facility]) Sodium 137 mEq/L 134-14 Metabolic Prof 9 Potassium 4.6 mEq/L 3.6-5.5 Chloride 101 mEq/L 94-112 Carbon Dioxide 21 mEq/L 21-32 Glucose 216 mg/dL High 70-105 BUN 33 mg/dL High 6-26 Creatinine 1.2 mg/dL 0.6-1.4 BUN/Creat Ratio 27.5 CALC 8.0-36.0 Calcium 9.9 mg/dL 8.6-10.2 Total Protein 7.9 g/dL 6.4-8.3 Albumin 4.9 g/dL 3.8-5.5 Globulin 3.0 g/dL 2.0-4.8 A/G Ratio 1.6 CALC 0.6-2.3 Alk. Phosphatase 81 U/L 30-110 Alt (SGPT) 46 U/L High 7-35 Ast (Sgot) 40 U/L High 5-34 Total Bilirubin 0.5 mg/dL 0.2-1.3 GFR Non- 47 ml/min/1.73m^ Low >=60 GFR 57 ml/min/1.73m^ Low >=60 Laboratory test 03/26/2019 [facility]) Amylase, Serum 47 U/L 20- 105 4 finding Total And Direct 03/26/2019 [facility]) Total Bilirubin 0.5 mg/dL 0.2-1.3 Bili Direct Bilirubn 0.2 mg/dL 0.0-0.6 Indirect Bilirubin 0.30 mg/dL 0.10-1.00 Laboratory test finding 03/26/2019 [facility] Lipase 88 U/L High 14-72 [address] [place] [address] (203)- - 1 SEE RESULT BELOW Name: JENNA WAHL : [address]: Joshua Gonzalez MD Acct: [id number] Unit: [id number] AGE: 69 Location: ENDO Re08/05/19 SEX: F Status: DEP REF SPEC: [id number] MAXIMO: 08/05/19- SUBM DR: Joshua Gonzalez MD REQ: [id number] RECD: 08/05/19191 STATUS: DWIGHT GARDNER DR: Charles Blanco MD _ ORDERED: LEVEL 4 FINAL DIAGNOSIS Colon, random biopsies: -- Large intestinal mucosa with no significant pathologic abnormalities. -- No evidence of microscopic/lymphocytic colitis, collagenous colitis or other acute or chronic inflammatory bowel process. POST-OPERATIVE DIAGNOSIS Colonoscopy: to terminal ileum; anastomosis at 20 cm ; biopsy; hemorrhoids GROSS DESCRIPTION The specimen is received in formalin labeled, Biopsy Random Colon, and consists of a 1.0 x 0.6 x 0.1 cm aggregate of crisostomo-pink irregular soft tissue fragments which is submitted entirely in one cassette. Signed by and Reported on: David Ortiz MD 05/16 1229 END OF REPORT DEPARTMENT OF PATHOLOGY, [address] [place] [address] David Ortiz M.D. Director SANDRA # [id number] 2 SEE RESULT BELOW Name: LINSEYJENNA Sanjana : [address]: Albertina Siddiqui NP Acct: [id number] Unit: [id number] AGE: 68 Location: [facility] Re07/23/19 SEX: F Status: REG REF SPEC: [id number] MAXIMO: 07/23/[address]: Albertina Siddiqui NP REQ: [id number] RECD: 07/23/19 STATUS: COMP _ SOURCE: URINE SPDESC: ORDERED: Urine Culture COMMENTS: [facility] [id number] Urine Source: Random Procedure Result Reported Site Urine Culture Final 07/24/19- 1430 ML No Growth (<1,000 CFU/mL) * ML - Main Lab . END OF REPORT DEPARTMENT OF PATHOLOGY, [address] [place] [address] David Ortiz M.D. Director [facility] # [id number] 3 SEE RESULT BELOW Name: JENNA WAHL : [address]: Charles Blanco MD Acct: [id number] Unit: [id number] AGE: 68 Location: [facility] Re05/27/19 SEX: F Status: REG REF SPEC: [id number] MAXIMO: 05/27/19 [facility] DR: Charles Blanco MD REQ: [id number] RECD: 05/27/19 STATUS: COMP _ SOURCE: STOOL SPDESC: ORDERED: C. diff PCR Procedure Result Reported Site Stool Specimen Description Final 05/27/19- 1132 ML Stool Color Brown Stool Form Nonformed Stool Consistency Liquid with Solid pieces C. difficile PCR Final 05/27/19- 1214 ML Organism 1 027 Presumptive NEGATIVE Organism 2 Toxigenic C.diff NEGATIVE As with all diagnostic procedures, the laboratory results obtained should be used in conjunction with other clinical information available to the physician, including confirmation by another method, as applicable. * ML - Main Lab . END OF REPORT DEPARTMENT OF PATHOLOGY, [address] [place] [address] David Ortiz M.D. Director [facility] # [id number] [address] Gonzalez's office. 5 1 SST Procedures Date Code Description Status 11/02/2018 [id number] Mammogram Completed 10/29/2017 [id number] Mammogram Completed 08/16/2016 [id number] Mammogram Completed 06/07/2015 [id number] Mammogram Completed 06/06/2015 [id number] Mammogram Completed 12/30/2013 [id number] Mammogram Completed 09/30/2012 [id number] Mammogram Completed 04/30/2010 [id number] Colonoscopy Completed 09/13/2008 [id number] Mammogram Completed Medical Devices Description No Information Available Encounters Type Date Location Provider Dx Diagnosis Office Visit 07/22/2019 [facility] Albertina Siddiqui, [facility] K64.8 Other hemorrhoids 3:00p N39.0 Urinary tract infection, site not specified R19.7 Diarrhea, unspecified Office Visit 03/24/2019 6:15p Main Office [place] K75.81 Nonalcoholic MARTÍN Martinez steatohepatitis ([place]) R10.10 Upper abdominal pain, unspecified R19.7 Diarrhea, unspecified Assessments Date Code Description Provider 08/13/2019 R19.7 Diarrhea, unspecified Daxa Bob M.D. 08/13/2019 K64.8 Other hemorrhoids Daxa Bob M.D. 07/23/2019 N39.0 Urinary tract infection, site not specified Albertina Chen, [facility] 07/23/2019 K64.8 Other hemorrhoids Albertina Chen, [facility] 07/22/2019 K64.8 Other hemorrhoids Albertina Chen, [facility] 07/22/2019 N39.0 Urinary tract infection, site not specified Albertina Chen, [facility] 07/22/2019 R19.7 Diarrhea, unspecified Albertina Chen, [facility] 03/26/2019 R10.10 Upper abdominal pain, unspecified Xena Martinez NP 03/24/2019 K75.81 Nonalcoholic steatohepatitis ([place]liver) Xena Martinez NP 03/24/2019 R10.10 Upper abdominal pain, unspecified Xena Martinez NP 03/24/2019 R19.7 Diarrhea, unspecified Xena Martinez NP Plan of Treatment 08/13/2019 - Daxa Bob M.D.R19.7 Diarrhea, unspecifiedNew Labs:Culture Stool & Sensitivity, Ordered: 08/13/19Culture Stool & O&P, Ordered: 08/13/19Fecal Lactoferrin (Stool WBC), Ordered: 08/13/19tool For O&P Full, Ordered: 08/13/19Comments:Trial of ralnvxwxqK86.8 Other hemorrhoidsNew Medication:Nitro-bid 2 % - small amount to affected hemorrhoid twice dailyComments:refer to surgeons. go ahead and take tylenol.AllComments: Medication Management Patient Understands medications she 's taking? Yes No Are there Barriers to Adherence? Yes No Has the patient been asked about herbal supplements and therapies, and OTC meds? Yes No Care Plan1. Patient has been queried about patient's goals/preferences and functional/lifestyle goals at relevant visits. If relevant, describe: na2. Treatment goals as explained to the patient: above3. Are there barriers to meeting treatment goals? Yes No If Yes, please describe:4. Self- Management goals as described to the patient: Yes No Functional Status Description No Information Available Mental Status Description No Information Available Referrals Refer to Reason for Referral Status Appt Date Joaquin Dunbar DO consult and treat-nausea/stomach pain jw Scheduled [address] [place] [address] [phone]
--- OUTSIDE RECORDS SUMMARY | 2019-08-16 10:26 | XMS REPORT | Continuity of Care Document ---
:1950 External Reference #:[id number] Author Name Joshua Gonzalez MD Address [address] [place] [address] Care Team Providers Name Role Phone Charles Blanco MD - Family Medicine Care Team Information Dry Curer Problems Active Problems Provider Date Other hemorrhoids RODOLFO TannerC Onset: 07/08/2019 Rectal pain DUNCAN Tanner-C Onset: 07/08/2019 Abdominal pain Shelbie Joel PA-C Onset: 06/21/2019 Left upper quadrant pain Shelbie Joel PA-C Onset: 04/02/2019 Left lower quadrant pain Shelbie Joel PA-C Onset: 04/02/2019 Digestive symptom Shelbie Joel PA-C Onset: 04/02/2019 Constipation Shelbie Joel PA-C Onset: 03/11/2019 Nausea Shelbie Joel PA-C Onset: 03/11/2019 Generalized abdominal pain Shelbie Joel PA-C Onset: 03/11/2019 Flatulence, eructation and gas pain Shelbie Joel PA-C Onset: 2018 Gastroesophageal reflux disease DUNCAN Tanner-C Onset: 03/11/2019 Epigastric pain Joshua Gonzalez MD Onset: 03/09/2015 Diarrhea Charles Blanco MD Onset: 04/17/2015 Social History Type Date Description Comments Sex Unknown Tobacco Use Start: Unknown Patient has never smoked Smoking Status Reviewed: 07/08/19 Patient has never smoked Allergies, Adverse Reactions, Alerts Active Allergies Reaction Severity Comments Date Amoxicillin 02/17/2019 Inactive Allergies Steri-Strips 03/09/2015 NKDA 03/09/2015 Medications Active Medications SIG Qnty Indications Ordering Date Provider Analpram-HC apply to the 28.400gm K64.8 Joshua Betts 1-1% Cream anus twice a day MD Lisa 9 for 1-2 weeks prn pain/pruritis Hydrocortisone Apply Cream 30gm K62.89 Joshua Betts 2.5% Cream Rectally Via MD Lisa 9 Applicator To Affected Area Twice Daily For 1 To 2 Weeks Sertraline HCL Take 1 Tablet By 30tabs F41.9 Albertina Siddiqui, 50mg Tablets Mouth Once Daily QUAHOGGER 9 Glipizide ER Take 1 Tablet By 60tabs E11.65 Breiman, 5mg Tablets ER Mouth Twice MD Charles 9 24HR Daily Sucralfate take 1 tablet by 120tabs R10.812 Albertina Siddiqui, 1gm Tablets mouth 2-4 times QUAHOGGER 9 daily before meals Vitamin B-12 ER 2 1/2 po qd 30tabs Breiman, 1000mcg Tablets MD Charles 4 ER Vitamin D 1 po qd Paulino, 1000Unit Capsules MD Daxa 2 Fish Oil 1 po qd Paulino, 500mg Capsules MD Daxa 2 Pravastatin Sodium Take One-Half 45tabs 272.4 Breiman, 40mg Tablets Tablet By Mouth MD Charles 2 Once Daily Lisinopril Take 1 Tablet By 90tabs E11.65 Breiman, 10mg Tablets Mouth Once Daily MD Charles 2 Hydrochlorothiazide take one tablet 90tabs Breiman, 25mg by mouth every MD Charles 0 Tablets day L-Lysine 3 po qd Unknown 1000mg Tablets 0 Metformin HCL take one tablet E11.65 Unknown 1000mg Tablets by mouth twice a 0 day Omeprazole 1 by mouth every Unknown 20mg Capsules DR day 0 History Medications Analpram-HC apply to the anus 28.400gm K64.8 Joshua Betts 07/08/2019 - 1-1% twice a day for 1-2 MD Lisa 07/08/2019 Cream weeks prn pain/pruritis Hydrocortisone [address] of rectum 24units K62.89 Joshua Betts 07/08/2019 - Acetate twice daily for 1-2 MD Lisa 07/08/2019 25mg weeks Suppository Immunizations Description No Information Available Vital Signs Date Vital Result Comment 07/08/2019 9:18am Height 64 inches 5'4" Weight 182.00 lb BMI (Body Mass Index) 31.2 kg/m2 06/21/2019 12:46pm Height 64 inches 5'4" Weight 180.00 lb BP Systolic 127 mmHg BP Diastolic 77 mmHg Heart Rate 81 /min BMI (Body Mass Index) 30.9 kg/m2 Results Test Acquired Facility Test Result H/L Range Note Date Laboratory 08/05/2019 [facility] [place]ULT 1 test finding Pathology BELOW Order Laboratory 03/25/2019 [facility] Breath Test NEGATIVE test finding [address] [place] [address] [phone] 1 SEE RESULT BELOW Name: JENNA WAHL : [address]: Joshua Gonzalez MD Acct: [id number] Unit: [id number] AGE: 69 Location: [facility] Re08/05/19 SEX: F Status: DEP REF SPEC: [id number] MAXIMO: 08/05/19- SUBM DR: Joshua Gonzalez MD REQ: [id number] RECD: 08/05/19-1541 STATUS: DWIGHT GARDNER DR: Charles Blanco MD [...] 1229 END OF REPORT DEPARTMENT OF PATHOLOGY, [address] [place] [address] David Ortiz M.D. Director [facility] # [id number] SEE RESULT BELOW Name: JENNA WAHL : [address]: Joshua Gonzalez MD Acct: [id number] Unit: [id number] AGE: 69 Location: ENDO Re08/05/19 SEX: F Status: DEP REF SPEC: [id number] MAXIMO: 08/05/19- SUBM DR: Joshua Gonzalez MD REQ: [id number] RECD: 08/05/194161 STATUS: DWIGHT GARDNER DR: Charles Blanco MD [...] 1229 END OF REPORT DEPARTMENT OF PATHOLOGY, [address] [place] [address] David Ortiz M.D. Director [facility] # [id number] SEE RESULT BELOW Name: JENNA WAHL : [address]: Joshua Gonzalez MD Acct: [id number] Unit: [id number] AGE: 69 Location: ENDO Re08/05/19 SEX: F Status: DEP REF SPEC: [id number] MAXIMO: 08/05/19- SUBM DR: Joshua Gonzalez MD REQ: [id number] RECD: 08/05/19154 STATUS: DWIGHT GARDNER DR: Charles Blanco MD [...] 1229 END OF REPORT DEPARTMENT OF PATHOLOGY, [address] [place] [address] David Ortiz M.D. Director [facility] # [id number] Procedures Date Code Description Status 03/25/2019 45675 Breath Hydrogen Completed Medical Devices Description No Information Available Encounters Type Date Location Provider Dx Diagnosis Office Visit 06/21/2019 [facility] Shelbie Millard R19.7 Diarrhea, 1:00p [facility] Swanstrom, PA-C unspecified R10.30 Lower abdominal pain, unspecified Office Visit 04/02/2019 Gastroenterology Shelbie Millard R19.4 Change in 9:45a [facility] Swbelltrom, PA-C bowel habit R10.32 Left lower quadrant pain R10.12 Left upper quadrant pain Office 03/11/2019 Gastroenterology Shelbie Millard K21.9 Gastro-esophageal Visit 2:00p [facility] Swbelltrom, reflux disease PA-C without esophagitis R14.0 Abdominal distension (gaseous) R10.84 Generalized abdominal pain R11.0 Nausea K59.00 Constipation, unspecified R19.7 Diarrhea, unspecified Assessments Date Code Description Provider 07/08/2019 K62.89 Other specified diseases of anus and Joshua Gonzalez MD rectum 07/08/2019 K62.89 Other specified diseases of anus and Shelbie L. Panchotrom , PA-C rectum 07/08/2019 K64.8 Other hemorrhoids Joshua Gonzalez MD 07/08/2019 K64.8 Other hemorrhoids Shelbie Kelly. Panchotrom, PA-C 06/21/2019 R19.7 Diarrhea, unspecified Shelbie L. Swanstrom, PA-C 06/21/2019 R10.30 Lower abdominal pain, unspecified Shelbie L. Swanstrom, PA -C 04/02/2019 R19.4 Change in bowel habit Shelbie L. Swbelltrom, PA-C 04/02/2019 R10.32 Left lower quadrant pain Shelbie L. Swanstrom, PA-C 04/02/2019 R10.12 Left upper quadrant pain Shelbie Kelly. Swanstrom, PA-C 03/25/2019 R14.0 Abdominal distension (gaseous) Joshua Gonzalez MD 03/25/2019 R10.84 Generalized abdominal pain Joshua Gonzalez MD 03/25/2019 K21.9 Gastro-esophageal reflux disease without Joshua Gonzalez MD esophagitis 03/11/2019 K21.9 Gastro-esophageal reflux disease without Shelbie Joel PA-C esophagitis 03/11/2019 R14.0 Abdominal distension (gaseous) Shelbie Joel PA-C 03/11/2019 R10.84 Generalized abdominal pain Shelbie Joel PA-C 03/11/2019 R11.0 Nausea Shelbie Joel PA-C 03/11/2019 K59.00 Constipation, unspecified Shelbie Joel PA-C 03/11/2019 R19.7 Diarrhea, unspecified Shelbie Joel PA-C Plan of Treatment 07/08/2019 - RODOLFO TannerCK62.89 Other specified diseases of anus and rectumNew Medication:Hydrocortisone 2.5 % - Apply Cream Rectally Via Applicator To Affected Area Twice Daily For 1 To 2 WeeksHydrocortisone Acetate 25 mg - [address] of rectum twice daily for 1-2 usygvN61.8 Other hemorrhoidsNew Medication:Analpram-HC 1-1 % - apply to the anus twice a day for 1-2 weeks prn pain/pruritisAnalpram-HC 1-1 % - apply to the anus twice a day for 1-2 weeks prn pain/pruritis Functional Status Description No Information Available Mental Status Description No Information Available Referrals Description No Information Available
--- OUTSIDE RECORDS SUMMARY | 2019-08-16 10:27 | XMS REPORT | Continuity of Care Document ---
:1950 External Reference #:[id number] Author Name Shelbie Joel PA-C Address [address] [place] [address] Care Team Providers Name Role Phone Charles Blanco MD - Family Medicine Care Team Information Logging Supervisor [phone] Problems Active Problems Provider Date Other hemorrhoids Shelbie Joel PA-C Onset: 07/08/2019 Rectal pain Shelbie Joel PA-C Onset: 07/08/2019 Abdominal pain Shelbie Joel PA-C Onset: 06/21/2019 Left upper quadrant pain Shelbie Joel PA-C Onset: 04/02/2019 Left lower quadrant pain Shelbie Joel PA-C Onset: 04/02/2019 Digestive symptom Shelbie Joel PA-C Onset: 04/02/2019 Constipation RODOLFO TannerC Onset: 03/11/2019 Nausea Shelbie Joel PA-C Onset: 03/11/2019 Generalized abdominal pain Shelbie Joel PA-C Onset: 03/11/2019 Flatulence, eructation and gas pain Shelbie Joel PA-C Onset: 2018 Gastroesophageal reflux disease Shelbie Joel PA-C Onset: 03/11/2019 Epigastric pain Joshua Gonzalez MD [...] 9 for 1-2 weeks prn pain/pruritis Hydrocortisone apply rectally 30gm K62.89 Joshua Betts 2.5% Cream via applicator MD Lisa 9 as needed two times daily for 1-2 weeks Sertraline HCL Take 1 Tablet By 30tabs F41.9 Albertina Siddiqui, 50mg Tablets Mouth Once Daily TIGHT ROPE WALKER 9 Glipizide ER Take 1 Tablet By 60tabs E11.65 Breiman, 5mg Tablets ER Mouth Twice MD Charles 9 24HR Daily Sucralfate take 1 tablet by 120tabs R10.812 Albertina Siddiqui, 1gm Tablets mouth 2-4 times TIGHT ROPE WALKER 9 daily before meals Vitamin B-12 ER 2 1/2 po qd 30tabs Breiman, 1000mcg Tablets MD Charles 4 ER Lisinopril Take 1 Tablet By 90tabs E11.65 Breiman, 10mg Tablets Mouth Once Daily MD Charles 2 Pravastatin Sodium Take One-Half 45tabs 272.4 Breiman, 40mg Tablets Tablet By Mouth MD Charles 2 Once Daily Fish Oil 1 po qd Paulino, 500mg Capsules MD Daxa 2 Vitamin D 1 po qd Paulino, 1000Unit Capsules MD Daxa 2 Hydrochlorothiazide take one tablet 90tabs Breiman, [...] 1-2 MD Lisa 07/08/2019 25mg weeks Suppository Azithromycin take one by mouth 3tabs A09 Xena Martinez 01/26/2019 - 500mg daily for 3 days. ,TIGHT ROPE WALKER 03/11/2019 Tablets Immunizations Description No Information Available Vital Signs Date Vital Result Comment 07/08/2019 9:18am Height 64 inches 5'4" Weight 182.00 lb BMI (Body Mass Index) 31.2 kg/m2 06/21/2019 12:46pm Height 64 inches 5'4" Weight 180.00 lb BP Systolic 127 mmHg BP Diastolic 77 mmHg Heart Rate 81 /min BMI (Body Mass Index) 30.9 kg/m2 Results Test Acquired Date Facility Test Result H/L Range Note Laboratory test 03/25/2019 [facility] Breath Test NEGATIVE finding [address] [place] [phone] Procedures Date Code Description Status 03/25/2019 06140 Breath Hydrogen Completed Medical Devices Description No Information Available Encounters Type Date Location Provider Dx Diagnosis Office Visit 04/02/2019 [facility] Shelbie Millard R19.4 Change in bowel 9:45a [facility] OSMAR Joel habit R10.32 Left lower quadrant pain R10.12 Left upper quadrant pain Office 03/11/2019 [facility]astroenter[facility] Shelbie Millard K21.9 [facility] OSMAR without esophagitis R14.0 Abdominal distension (gaseous) R10.84 Generalized abdominal pain R11.0 Nausea K59.00 Constipation, unspecified R19.7 Diarrhea, unspecified Assessments Date Code Description Provider 07/08/2019 K62.89 Other specified diseases of anus and Shelbie Joel PA-C rectum 07/08/2019 K64.8 Other hemorrhoids Shelbie Joel PA-C 06/21/2019 R19.7 Diarrhea, unspecified Shelbie Joel PA-C 06/21/2019 R10.30 Lower abdominal pain, unspecified Shelbie Joel, PA -C 04/02/2019 R19.4 Change in bowel habit DUNCAN Tanner-C 04/02/2019 R10.32 Left lower quadrant pain Shelbie Joel PA-C 04/02/2019 R10.12 Left upper quadrant pain Shelbie Joel, PA-C 03/25/2019 R14.0 Abdominal distension (gaseous) Joshua Gonzalez MD 03/25/2019 R10.84 Generalized abdominal pain Joshua Gonzalez MD 03/25/2019 K21.9 Gastro-esophageal reflux disease without Joshua Gonzalez MD esophagitis 03/11/2019 K21.9 Gastro-esophageal reflux disease without Shelbie Joel PA-C esophagitis 03/11/2019 R14.0 Abdominal distension (gaseous) DUNCAN Tanner-C 03/11/2019 R10.84 Generalized abdominal pain Shelbie Joel PA-C 03/11/2019 R11.0 Nausea Shelbie Joel PA-C 03/11/2019 K59.00 Constipation, unspecified DUNCAN Tanner-C 03/11/2019 R19.7 Diarrhea, unspecified RODOLFO TannerC Plan of Treatment Future Appointment(s):08/05/2019 12:00 pm - [facility] at [facility]07/08/2019 - RODOLFO TannerCK62.89 Other specified diseases of anus and rectumNew Medication:Hydrocortisone 2.5 % - apply rectally via applicator as needed two times daily for 1-2 weeksHydrocortisone Acetate 25 mg - [address] of rectum twice daily for 1-2 kgeavI91.8 Other hemorrhoidsNew Medication:Analpram-HC 1-1 % - apply to the anus twice a day for 1-2 weeks prn pain/pruritisAnalpram-HC 1-1 % - apply to the anus twice a day for 1-2 weeks prn pain/pruritis Functional Status Description No Information Available Mental Status Description No Information Available Referrals Description No Information Available
--- OUTSIDE RECORDS SUMMARY | 2019-08-16 10:27 | XMS REPORT | Continuity of Care Document ---
:1950 External Reference #:[id number] Author Name Shelbie Joel PA-C Address [address] [place] [address] Care Team Providers Name Role Phone Charles Blanco MD - Family Medicine Care Team Information Personnel Adviser Problems Active Problems Provider Date Abdominal pain Shelbie Joel PA-C Onset: 06/21/2019 [...] Patient has never smoked Smoking Status Reviewed: 06/21/19 Patient has never smoked Allergies, Adverse Reactions, Alerts Active Allergies Reaction Severity Comments Date Amoxicillin 02/17/2019 Inactive Allergies Steri-Strips 03/09/2015 NKDA 03/09/2015 Medications Active Medications SIG Qnty Indications Ordering Date Provider Sertraline HCL Take 1 Tablet 30tabs F41.9 Albertina Siddiqui, 01/22/2019 50mg Tablets By Mouth Once BARTACKER Daily Glipizide ER Take 1 Tablet 60tabs E11.65 Breiman, 01/01/2019 5mg Tablets ER 24HR By Mouth MD Charles Twice Daily Sucralfate take 1 tablet 120tabs R10.812 Albertina Siddiqui, 09/18/2018 1gm Tablets by mouth 2-4 BARTACKER times daily before meals Vitamin B-12 ER 2 / po qd 30tabs Breiman, 02/07/2014 1000mcg Tablets MD Charles ER Vitamin D 1 po qd Paulino, 09/13/2011 1000Unit Capsules MD Daxa Fish Oil 1 po qd Paulino, 09/13/2011 500mg Capsules MD Daxa Pravastatin Sodium Take One-Half 45tabs 272.4 Breiman, 09/13/2011 40mg Tablets Tablet By MD Charles Mouth Once Daily Lisinopril Take 1 Tablet 90tabs E11.65 Breiman, 09/13/2011 10mg Tablets By Mouth Once MD Charles Daily Hydrochlorothiazide take one 90tabs Breiman, 03/28/2010 25mg Tablets tablet by MD Charles mouth every day L-Lysine 3 po qd Unknown 1000mg Tablets Metformin HCL take one E11.65 Unknown 1000mg Tablets tablet by mouth twice a day Omeprazole 1 by mouth Unknown 20mg Capsules DR every day History Medications Azithromycin take one by 3tabs A09 Xena Martinez NP 01/26/2019 - 500mg mouth daily for 03/11/2019 Tablets 3 days. Immunizations Description No Information Available Vital Signs Date Vital Result Comment 06/21/2019 12:46pm Height 64 inches 5'4" Weight 180.00 lb BP Systolic 127 mmHg BP Diastolic 77 mmHg Heart Rate 81 /min BMI (Body Mass Index) 30.9 kg/m2 04/02/2019 9:40am Height 64 inches 5'4" Weight 178.00 lb BMI (Body Mass Index) 30.6 kg/m2 Results Test Acquired Date Facility Test Result H/L Range Note Laboratory test 03/25/2019 [facility]GAT[facility] [place] [address] [phone] Procedures Date Code Description Status 03/25/2019 15903 Breath Hydrogen Completed Medical Devices Description No Information Available Encounters Type Date Location Provider Dx Diagnosis Office Visit 04/02/2019 [facility] Shelbie Millard R19.4 Change in bowel 9:45a [facility] Panchotrom, PA-C habit R10.32 Left lower quadrant pain R10.12 Left upper quadrant pain Office 03/11/2019 [facility] Shelbie Millard K21.9 [facility] reflux disease [facility]-C without esophagitis R14.0 Abdominal distension (gaseous) R10.84 Generalized abdominal pain R11.0 Nausea K59.00 Constipation, unspecified R19.7 Diarrhea, unspecified Assessments Date Code Description Provider 06/21/2019 R19.7 Diarrhea, unspecified Shelbie Venice Swbelltrom, PA-C 06/21/2019 R10.30 Lower abdominal pain, unspecified Shelbie KellyDilip Swbelltrom, PA -C 04/02/2019 R19.4 Change in bowel habit Shelbie Millard Swbelltrom, PA-C 04/02/2019 R10.32 Left lower quadrant pain Shelbie Millard Swbelltrom, PA-C 04/02/2019 R10.12 Left upper quadrant pain Shelbie Mendoza. Swbelltrom, PA-C 03/25/2019 R14.0 Abdominal distension (gaseous) Joshua Gonzalez MD 03/25/2019 R10.84 Generalized abdominal pain Joshua Gonzalez MD 03/25/2019 K21.9 Gastro-esophageal reflux disease without Joshua Gonzalez MD esophagitis 03/11/2019 K21.9 Gastro-esophageal reflux disease without Shelbie Kelly. Swbelltrom, PA-C esophagitis 03/11/2019 R14.0 Abdominal distension (gaseous) Shelbie Kelly. Rinkubelltrom, PA-C 03/11/2019 R10.84 Generalized abdominal pain Shelbiecharity Millard Swbelltrom, PA-C 03/11/2019 R11.0 Nausea Shelbie Kelly. Swanstrom, PA-C 03/11/2019 K59.00 Constipation, unspecified Shelbie L. Swanstrom, PA-C 03/11/2019 R19.7 Diarrhea, unspecified Shelbie Joel PA-C Plan of Treatment Future Appointment(s):07/08/2019 9:30 am - Shelbie Joel PA-C at [facility]08/05/2019 12:00 pm - Joshua Gonzalez MD at [facility]06/21/2019 - DUNCAN Tanner -CR19.7 Diarrhea, dcsnuysstrhH39.30 Lower abdominal pain, unspecified Functional Status Description No Information Available Mental Status Description No Information Available Referrals Description No Information Available
[2019-08-16] MEDS ORDERED: Iodixanol* (CONTRAST) 320 MG/ML 100 ML SDV IV ONE (10:38)
[2019-08-16 12:43] LABS: Urine Appearance Clear; Urine Bilirubin Negative (Negative); Urine Blood Negative (Negative); Urine Color Yellow; Urine Glucose 2+(150 mg/dL) (Negative); Urine Ketones Negative (Negative); Urine Nitrite Negative (Negative); Urine Protein Negative (Negative); Urine Specific Gravity 1.051 (1.010-1.030); Urine Urobilinogen Negative (Negative)
[2019-08-16] MEDS ORDERED: oxyCODONE/Acetamin 5/325 MG* TAB PO ONE (13:50)
--- NOTE | 2019-08-16 14:11 | CONSULT ---
Consult Consult: DATE OF CONSULTATION: 08/16/19 REASON FOR CONSULTATION: Anal and rectal pain HPI: Jenna Wahl is a 69-year-old woman with a history of hypertension and diabetes who presents to the ED with rectal pain for the past couple weeks. She has had chronic diarrhea for the past few months where she has up to 15 bowel movements each day. She has burning pain at the anus while having bowel movements. She reports the pain extends up into the rectum internally. She reports she is not straining and the stool is liquid. She underwent colonoscopy for workup on August [address] Gonzalez. The colonoscopy was unremarkable besides diverticulosis and ulcerated internal hemorrhoids. She has a small amount of rectal bleeding with bowel movements. She has lost 5-7 pounds in the past 1 month because she avoids eating to control the diarrhea. She has tried Metamucil and [id number] antidiarrheal with little improvement in the diarrhea. She denies fevers or chills. She sometimes has abdominal pain before and during a bowel movement. She was checked for C diff about 2 weeks ago which was negative. She currently denies abdominal pain or nausea or vomiting. She was advised to see a colorectal surgeon for the internal hemorrhoids by her caddie supervisor. She was actually scheduled to see me in clinic today to discuss hemorrhoids. However, the rectal pain was too severe this morning, and she presented to the ED instead. PMH: HTN, DM, hyperlipidemia. PSH: Open sigmoidectomy for diverticulitis. Cholecystectomy and umbilical hernia repair at the time of the sigmoidectomy. First rib resection for thoracic outlet syndrome. Left hip replacement Home Medications Medication Instructions Recorded Confirmed Type Lisinopril TAB* [Prinivil TAB 10 10 mg PO DAILY 11/26/14 08/16/19 History MG*] metFORMIN* [Glucophage 500 MG TAB 1,000 mg PO BID 11/26/14 08/16/19 History *] Hydrochlorothiazide TAB* 25 mg PO DAILY 07/28/15 08/16/19 History [Hydrodiuril TAB*] [place]-3/Dha/Epa/Fish Oil [Fish Oil] 500 mg PO DAILY 07/28/15 08/16/19 History Ubidecarenone [Coq10] 100 mg PO DAILY 07/28/15 08/16/19 History glipiZIDE TAB.XL* [Glucotrol XL*] 5 mg PO BID 09/14/16 08/16/19 History Pravastatin Sodium 60 mg PO DAILY 07/10/18 08/16/19 History Sertraline HCl [Zoloft] 50 mg PO DAILY 07/10/18 08/16/19 History Cholecalciferol TAB* [Vitamin D 1,000 unit PO DAILY 07/27/19 08/16/19 History TAB*] Lysine HCl [l-Lysine] 3,000 mg PO DAILY 07/27/19 08/16/19 History Omeprazole CAP (NF) [Prilosec CAP* 20 mg PO DAILY 07/27/19 08/16/19 History 20 MG] Cyanocobalamin TAB* [Vitamin B12 2,500 mcg PO DAILY 08/16/19 08/16/19 History TAB*] Hydrocortisone Acetate [Anucort-Hc] 25 mg [place] Q12H 08/16/19 08/16/19 History Multivitamins/Minerals TAB* 1 tab PO DAILY 08/16/19 08/16/19 History [Theragran/minerals TAB*] Allergies amoxicillin Allergy (Verified 08/16/19 09:01) Diarrhea FH: Mother and siblings with diabetes. Father's medical history unknown. SH: Lives with . Denies tobacco, alcohol, or recreational drug use. ROS: 10 point review of systems was obtained. Pertinent positives and negatives are in the HPI. PHYSICAL EXAM: Temp Pulse Resp BP Pulse Ox 98.5 F 75 18 111/60 97 08/16/19 14:46 08/16/19 14:46 08/16/19 14:46 08/16/19 14:46 08/16/19 14:46 General: No acute distress lying in bed. Head: Normocephalic and atraumatic. Eyes: Pupils are equal. No scleral icterus. Mouth: Moist mucous membranes. Neck: Trachea midline. CV: Regular rate and rhythm. Chest: Clear to auscultation bilaterally. Abdomen: Soft, obese, non-tender. Rectal: External hemorrhoid to the right of the midline. No bleeding or drainage from the hemorrhoid and no swelling. There is no erythema around the anus. The skin is intact. No anal fissure. Digital rectal exam was limited due to pain. I did not palpate any masses and tone was normal. Extremities: Warm. No pedal edema. Skin: Warm and dry. Neuro: Alert and oriented 3. Laboratory Results - last 24 hr 08/16/19 08/16/19 08/16/19 09:25 09:25 09:26 WBC 13.1 H RBC 4.13 Hgb 12.4 Hct 38 MCV 91 MCH 30 MCHC 33 RDW 13 Plt Count 317 MPV 8.6 Neut % (Auto) 61.3 Lymph % (Auto) 31.5 [place] % (Auto) 5.2 Eos % (Auto) 1.7 Baso % (Auto) 0.3 Absolute Neuts (auto) 8.0 H Absolute Lymphs (auto) 4.1 Absolute Monos (auto) 0.7 Absolute Eos (auto) 0.2 Absolute Basos (auto) 0.0 Absolute Nucleated RBC 0.0 Nucleated RBC % 0.1 Sodium 136 Potassium 4.0 Chloride 101 Carbon Dioxide 23 Anion Gap 12 H BUN 29 H Creatinine 0.98 H Est GFR ( Amer) 68.1 Est GFR (Non-Af Amer) 56.3 BUN/Creatinine Ratio 29.6 H Glucose 395 H Lactic Acid 2.7 H* Calcium 9.2 Total Bilirubin 0.30 AST 37 ALT 24 Alkaline Phosphatase 91 C-Reactive Protein 13.52 H Total Protein 7.5 Albumin 4.0 Globulin 3.5 Albumin/Globulin Ratio 1.1 Urine Color Urine Appearance Urine pH Ur Specific [place] Urine Protein Urine Ketones Urine Blood Urine Nitrate Urine Bilirubin Urine Urobilinogen Ur Leukocyte Esterase Urine Glucose 08/16/19 08/16/19 12:11 12:15 WBC RBC Hgb Hct MCV MCH MCHC RDW Plt Count MPV Neut % (Auto) Lymph % (Auto) [place] % (Auto) Eos % (Auto) Baso % (Auto) Absolute Neuts (auto) Absolute Lymphs (auto) Absolute Monos (auto) Absolute Eos (auto) Absolute Basos (auto) Absolute Nucleated RBC Nucleated RBC % Sodium Potassium Chloride Carbon Dioxide Anion Gap BUN Creatinine Est GFR ( Amer) Est GFR (Non-Af Amer) BUN/Creatinine Ratio Glucose Lactic Acid 1.6 Calcium Total Bilirubin AST ALT Alkaline Phosphatase C-Reactive Protein Total Protein Albumin Globulin Albumin/Globulin Ratio Urine Color Yellow Urine Appearance Clear Urine pH 5.0 Ur Specific [place] 1.051 H Urine Protein Negative Urine Ketones Negative Urine Blood Negative Urine Nitrate Negative Urine Bilirubin Negative Urine Urobilinogen Negative Ur Leukocyte Esterase Negative Urine Glucose 2+(150 mg/dl) A CT abdomen/pelvis: No evidence of rectal abscess. Post surgical change to rectum. A&P: 69F with rectal pain of unclear etiology. I do not see an explanation for her pain on physical exam. Internal hemorrhoids are unlikely to cause such severe pain, and the external hemorrhoid does not appear thrombosed or infected. She also describes the pain as internal. Differential includes pelvic floor dysfunction. I considered exam under anesthesia however I discussed with the patient that I am skeptical that I would find an abnormality to explain the type of pain she is having. She also has had a recent colonoscopy that was only notable for internal hemorrhoids in the rectum. -I agree with evaluation by colorectal surgeon. Patient prefers [facility] in [place]. -Pain control. -Controlling the diarrhea may be helpful if the pain is due to skin or mucosal irritation from the stool. I recommended increasing the dose of antidiarrheal according to the directions on the package and continue using Metamucil.
[2019-08-16 14:46] VITALS: BP 111/60
== END 2019-08-16 14:40 | disposition home or self-care (01) ==
LOC: ED 08:50
DX: K62.89 Other specified diseases of anus and rectum (principal); K64.4 Residual hemorrhoidal skin tags; K76.0 Fatty (change of) liver, not elsewhere classified; E11.9 Type 2 diabetes mellitus without complications; Z79.84 Long term (current) use of oral hypoglycemic drugs; I10 Essential (primary) hypertension; E78.5 Hyperlipidemia, unspecified; K21.9 Gastro-esophageal reflux disease without esophagitis; Z96.642 Presence of left artificial hip joint; Z88.0 Allergy status to penicillin
CPT/HCPCS: 36415; 74177; 80053; 81003; 83605; 85025; 86140; 96361; 96374; 96375; 96376; 99284; A9270-GY; J2270; J2405; Q9967